=== PATIENT | female | born 1970 | race Caucasian/White ===

== ENCOUNTER 2017-09-02 00:09 | Day surgery (SDC) | payer OTHER ==
[~2017-09-02 00:09] MED LIST: ACET325 PO; ACYC200 PO; AMLO10 PO; AMLO5 PO; AMOX250; Bactrim Ds Tab1 EACH PO; CEPH500 PO; CYAN500 PO; CYCL10 PO; Ceftriaxone2 G1 IV; DAPTOMYCIN500 MG IV; HYDACE10B PO; HYDACE5 PO; HYDCHL25 PO; Hydrocodone-Ap1 EA23 PO; IBUP400 PO; IBUP600 PO; IBUP800 PO; MELO7.5 PO; MULVITMIND PO; NAPR500 PO; NYST100000 PO; Norco 5-325 Ta1 EACH PO; OXYACE5T PO; PHENA200 PO; POTA10T PO; PROM25 PO; Percocet 5-3251 EACH PO; Pyridium100 MG PO; RXHYDACE PO; RXPHEN200 PO; Rocephin 10001000 MG IV; SPIHYD PO; SULTRIDS PO; TRAM50 PO; VICODIN PO
== END 2017-09-02 09:20 | disposition home or self-care (01) ==
LOC: ATC 00:09
DX: A41.9 Sepsis, unspecified organism (principal); J18.9 Pneumonia, unspecified organism; I10 Essential (primary) hypertension; F15.90 Other stimulant use, unspecified, uncomplicated
CPT/HCPCS: 96365; J0878; J7050

== ENCOUNTER 2017-09-03 00:33 | Day surgery (SDC) | payer OTHER | END 2017-09-03 08:54 | disposition home or self-care (01) | LOC: ATC 00:33 | DX: J18.0 Bronchopneumonia, unspecified organism (principal); A41.9 Sepsis, unspecified organism; F19.10 Other psychoactive substance abuse, uncomplicated; Z88.8 Allergy status to other drugs, medicaments and biological substances | CPT/HCPCS: 96365; J0878; J7050 ==

== ENCOUNTER 2017-09-04 00:05 | Day surgery (SDC) | payer OTHER | END 2017-09-04 08:48 | disposition home or self-care (01) | LOC: ATC 00:05 | DX: J18.0 Bronchopneumonia, unspecified organism (principal); A41.9 Sepsis, unspecified organism; F19.10 Other psychoactive substance abuse, uncomplicated; Z88.8 Allergy status to other drugs, medicaments and biological substances | CPT/HCPCS: 96365; J0878; J7050 ==

== ENCOUNTER 2017-09-07 00:43 | Day surgery (SDC) | payer OTHER ==
[2017-09-07 08:47] LABS: BASOPHILS ABSOLUTE AUTO 0.02 K/mm3 (0.00-0.23); BASOPHILS PERCENT AUTO 0 % (0-2); EOSINOPHILS ABSOLUTE AUTO 0.31 K/mm3 (0.00-0.68); EOSINOPHILS PERCENT AUTO 5 % (0-6); Hematocrit 36.8 % (33.0-51.0); Hemoglobin 11.2 g/dL (11.5-16.0); IMMATURE GRAN ABSOLUTE AUTO 0.01 K/mm3 (0.00-0.10); IMMATURE GRAN PERCENT AUTO 0 % (0-1); LYMPHOCYTES ABSOLUTE AUTO 1.73 K/mm3 (0.84-5.20); LYMPHOCYTES PERCENT AUTO 27 % (21-46); MONOCYTES ABSOLUTE AUTO 0.36 K/mm3 (0.16-1.47); MONOCYTES PERCENT AUTO 6 % (4-13); Mean Corpuscular HGB 25.7 pg (26.0-34.0); Mean Corpuscular HGB Conc 30.4 g/dL (31.5-36.5); Mean Corpuscular Volume 84 fL (80-100); Mean Platelet Volume 8.8 fL (9.1-12.4); NEUTROPHILS ABSOLUTE AUTO 4.01 K/mm3 (1.96-9.15); NEUTROPHILS PERCENT AUTO 62 % (41-73); Platelet Count 299 K/mm3 (150-400); RDW Coefficient Variation 20.6 % (11.7-14.2); RDW Standard Deviation 63.5 fL (35.1-46.3); Red Blood Cell Count 4.36 M/mm3 (3.80-5.20); White Blood Cell Count 6.44 K/mm3 (4.00-11.30)
[2017-09-07 09:09] LABS: Alanine Aminotransfer (ALT/SGP 65 U/L (12-78); Albumin, Blood 2.9 g/dL (3.4-5.0); Albumin/Globulin Ratio 0.6 (0.8-1.8); Alk Phos 70 U/L (50-136); Anion Gap 6 mmol/L (6-16); Aspartate Aminotrans (AST/SGOT 49 U/L (12-37); Bilirubin, Total 0.4 mg/dL (0.1-1.0); Blood Urea Nitrogen 8 mg/dL (8-24); Bun/Creatinine Ratio 12.2 (12.0-20.0); CO2, Blood 26 mmol/L (21-32); CPK Creatine Kinase 35 U/L (26-193); Calcium, Blood 8.1 mg/dL (8.5-10.1); Chloride, Blood 110 mmol/L (98-108); Creatinine, Blood 0.66 mg/dL (0.40-1.00); Globulin, Blood 4.7 g/dL (2.2-4.0); Glomerular Filtration Rate >60 (60-); Glucose, Blood 72 mg/dL (70-99); Potassium, Blood 3.3 mmol/L (3.5-5.5); Sodium, Blood 142 mmol/L (136-145); Total Protein, Blood 7.6 g/dL (6.4-8.2)
== END 2017-09-07 08:30 | disposition home or self-care (01) ==
LOC: ATC 00:43
PROVIDERS: Internal Medicine Infectious Disease
DX: A41.9 Sepsis, unspecified organism (principal); J18.9 Pneumonia, unspecified organism; F19.10 Other psychoactive substance abuse, uncomplicated
CPT/HCPCS: 80053; 82550; 85025; 96365; J0878; J7050

== ENCOUNTER 2017-09-08 00:46 | Day surgery (SDC) | payer OTHER | END 2017-09-08 07:58 | disposition home or self-care (01) | LOC: ATC 00:46 | DX: J18.0 Bronchopneumonia, unspecified organism (principal); A41.9 Sepsis, unspecified organism; F19.10 Other psychoactive substance abuse, uncomplicated; Z88.8 Allergy status to other drugs, medicaments and biological substances | CPT/HCPCS: 96374; J0878 ==

== ENCOUNTER 2017-09-09 00:26 | Day surgery (SDC) | payer OTHER | END 2017-09-09 08:19 | disposition home or self-care (01) | LOC: ATC 00:26 | DX: J18.0 Bronchopneumonia, unspecified organism (principal); A41.9 Sepsis, unspecified organism; F19.10 Other psychoactive substance abuse, uncomplicated; Z88.8 Allergy status to other drugs, medicaments and biological substances | CPT/HCPCS: 96374 ==

== ENCOUNTER 2017-09-11 00:33 | Day surgery (SDC) | payer OTHER | END 2017-09-11 14:03 | disposition home or self-care (01) | LOC: ATC 00:33 | DX: A41.9 Sepsis, unspecified organism (principal); J18.9 Pneumonia, unspecified organism | CPT/HCPCS: 96365; J0878 ==

== ENCOUNTER 2017-09-12 00:45 | Day surgery (SDC) | payer OTHER | END 2017-09-12 07:58 | disposition home or self-care (01) | LOC: ATC 00:45 | DX: A41.9 Sepsis, unspecified organism (principal); J18.9 Pneumonia, unspecified organism; F19.10 Other psychoactive substance abuse, uncomplicated | CPT/HCPCS: 96374 ==

== ENCOUNTER 2017-09-13 00:25 | Day surgery (SDC) | payer OTHER | END 2017-09-13 08:05 | disposition home or self-care (01) | LOC: ATC 00:25 | DX: A41.9 Sepsis, unspecified organism (principal); J18.9 Pneumonia, unspecified organism; I10 Essential (primary) hypertension; F15.90 Other stimulant use, unspecified, uncomplicated; F17.210 Nicotine dependence, cigarettes, uncomplicated | CPT/HCPCS: 96374; J0878 ==

== ENCOUNTER 2017-09-14 01:04 | Day surgery (SDC) | payer OTHER ==
[2017-09-14 09:14] LABS: BASOPHILS ABSOLUTE AUTO 0.04 K/mm3 (0.00-0.23); BASOPHILS PERCENT AUTO 0 % (0-2); EOSINOPHILS ABSOLUTE AUTO 0.71 K/mm3 (0.00-0.68); EOSINOPHILS PERCENT AUTO 8 % (0-6); Hematocrit 37.2 % (33.0-51.0); Hemoglobin 11.6 g/dL (11.5-16.0); IMMATURE GRAN ABSOLUTE AUTO 0.03 K/mm3 (0.00-0.10); IMMATURE GRAN PERCENT AUTO 0 % (0-1); LYMPHOCYTES ABSOLUTE AUTO 1.19 K/mm3 (0.84-5.20); LYMPHOCYTES PERCENT AUTO 13 % (21-46); MONOCYTES ABSOLUTE AUTO 0.45 K/mm3 (0.16-1.47); MONOCYTES PERCENT AUTO 5 % (4-13); Mean Corpuscular HGB 26.4 pg (26.0-34.0); Mean Corpuscular HGB Conc 31.2 g/dL (31.5-36.5); Mean Corpuscular Volume 85 fL (80-100); Mean Platelet Volume 9.3 fL (9.1-12.4); NEUTROPHILS ABSOLUTE AUTO 6.85 K/mm3 (1.96-9.15); NEUTROPHILS PERCENT AUTO 74 % (41-73); Platelet Count 298 K/mm3 (150-400); White Blood Cell Count 9.27 K/mm3 (4.00-11.30)
[2017-09-14 09:36] LABS: Alanine Aminotransfer (ALT/SGP 60 U/L (12-78); Albumin, Blood 3.1 g/dL (3.4-5.0); Albumin/Globulin Ratio 0.7 (0.8-1.8); Alk Phos 73 U/L (50-136); Anion Gap 8 mmol/L (6-16); Aspartate Aminotrans (AST/SGOT 37 U/L (12-37); Bilirubin, Total 0.5 mg/dL (0.1-1.0); Blood Urea Nitrogen 13 mg/dL (8-24); Bun/Creatinine Ratio 22.5 (12.0-20.0); CO2, Blood 25 mmol/L (21-32); CPK Creatine Kinase 87 U/L (26-193); Chloride, Blood 109 mmol/L (98-108); Creatinine, Blood 0.58 mg/dL (0.40-1.00); Globulin, Blood 4.4 g/dL (2.2-4.0); Glomerular Filtration Rate >60 (60-); Glucose, Blood 89 mg/dL (70-99); Potassium, Blood 3.2 mmol/L (3.5-5.5); Sodium, Blood 142 mmol/L (136-145); Total Protein, Blood 7.5 g/dL (6.4-8.2)
== END 2017-09-14 09:04 | disposition home or self-care (01) ==
LOC: ATC 01:04
PROVIDERS: Internal Medicine Infectious Disease
DX: J18.9 Pneumonia, unspecified organism (principal); A41.9 Sepsis, unspecified organism
CPT/HCPCS: 80053; 82550; 85025; 96374; J0878

== ENCOUNTER 2017-09-15 00:26 | Day surgery (SDC) | payer OTHER | END 2017-09-15 08:15 | disposition home or self-care (01) | LOC: ATC 00:26 | DX: A41.9 Sepsis, unspecified organism (principal); J18.9 Pneumonia, unspecified organism; I10 Essential (primary) hypertension | CPT/HCPCS: 96374; J0878 ==

== ENCOUNTER 2017-09-16 00:10 | Day surgery (SDC) | payer OTHER | END 2017-09-16 08:58 | disposition home or self-care (01) | LOC: ATC 00:10 | DX: A41.9 Sepsis, unspecified organism (principal); J18.9 Pneumonia, unspecified organism; I10 Essential (primary) hypertension; F19.10 Other psychoactive substance abuse, uncomplicated | CPT/HCPCS: 96374; J0878 ==

== ENCOUNTER 2017-09-18 00:20 | Day surgery (SDC) | payer OTHER | END 2017-09-18 08:17 | disposition home or self-care (01) | LOC: ATC 00:20 | DX: A41.9 Sepsis, unspecified organism (principal); J18.9 Pneumonia, unspecified organism; I10 Essential (primary) hypertension; F17.210 Nicotine dependence, cigarettes, uncomplicated; F15.90 Other stimulant use, unspecified, uncomplicated | CPT/HCPCS: 96374; J0878 ==

== ENCOUNTER 2017-09-19 00:48 | Day surgery (SDC) | payer OTHER | END 2017-09-19 07:56 | disposition home or self-care (01) | LOC: ATC 00:48 | DX: A41.9 Sepsis, unspecified organism (principal); J18.9 Pneumonia, unspecified organism; I10 Essential (primary) hypertension; F17.210 Nicotine dependence, cigarettes, uncomplicated; F15.90 Other stimulant use, unspecified, uncomplicated | CPT/HCPCS: 96374; J0878 ==

== ENCOUNTER 2017-09-20 00:20 | Day surgery (SDC) | payer OTHER | END 2017-09-20 08:54 | disposition home or self-care (01) | LOC: ATC 00:20 | DX: A41.9 Sepsis, unspecified organism (principal); J18.9 Pneumonia, unspecified organism; I10 Essential (primary) hypertension | CPT/HCPCS: 96374; J0878 ==

== ENCOUNTER → 2023-01-23 | Outpatient (CLI) | payer OTHER ==
[2023-01-23 12:59] LABS: Source, Urine Clean Catch
[2023-01-23 13:40] LABS: Appearance, Urine Clear (Clear); Bilirubin, Urine Neg (Neg); Blood, Urine 1+ (Neg); Color, Urine Yellow (P-Yellow); Glucose Qualitative, Urine Neg (Neg); Ketones, Urine 1+ (Neg); Leukocyte Esterase, Urine 2+ (Neg); Nitrite, Urine Neg (Neg); Protein, Urine 2+ (Neg); Urobilinogen, Urine NORM (Normal)
[2023-01-23 13:48] LABS: Squamous Epithelial Cells Many /hpf (Few)
[2023-01-23 13:49] LABS: Bacteria Mod /hpf; Mucus Light (0-Heavy)
== END | disposition home or self-care (01) ==
LOC: LAB 12:00 → LAB SHORT 12:00
PROVIDERS: Hospitalist
DX: N18.31 Chronic kidney disease, stage 3a (principal); E87.6 Hypokalemia
CPT/HCPCS: 81001; 87077; 87086; 87147; 87186